=== PATIENT | female | born 1970 | race Caucasian/White ===

== ENCOUNTER 2020-05-16 10:16 | Outpatient (CLI) | payer OTHER, SELFPAY ==
--- NOTE | ~2020-05-16 | MM_ITS ---
EXAMINATION: MM screening [facility] BI w cecily HISTORY: Screening TECHNIQUE: Craniocaudal and mediolateral oblique 3-D tomosynthesis images were obtained and synthetic 2-D images were generated. CAD analysis was submitted and interpreted. COMPARISON: Comparison to multiple prior studies sequentially, with oldest reviewed study dated 10/2013. BREAST PARENCHYMAL COMPOSITION: There are scattered areas of fibroglandular density. FINDINGS: Stable mass upper outer quadrant of the left breast. There is no evidence of suspicious mas s, calcification, or architectural distortion to suggest malignancy in either breast. There has been no suspicious interval change. IMPRESSION: 1. No mammographic evidence of malignancy. 2. Recommend routine screening mammography in one year. BI-RADS Category 2: Benign finding(s). Reviewed, dictated and finalized at location A.
== END 2020-05-16 10:17 | disposition home or self-care (01) ==
LOC: ANHIMG 10:19
PROVIDERS: PCP Physician Assistant; Visit Provider Physician Assistant
DX: Z12.31 Encounter for screening mammogram for malignant neoplasm of breast (principal)
CPT/HCPCS: 77063; 77067

== ENCOUNTER 2022-04-05 00:18 | Day surgery (SDC) | payer OTHER, SELFPAY ==
[2022-03-17 14:36] VITALS: BMI 27.9
[2022-04-05 08:44] VITALS: BP 129/79; PULSE 78; RESP 18; TEMP 36.6; O2SAT 100
[2022-04-05] MEDS: LACTATED RINGERS 1,000 ML 150 ML IV CONT (08:56)
--- NOTE | 2022-04-05 09:20 | PM.HPGS ---
History of Present Illness History of Present Illness Consent: Risks, benefits, and alternatives have been discussed and questions answered. Patient agrees to proceed with procedure. Chief complaint: neoplasm screening Narrative: Kary Quiroz is a 51 year old female here for first screening colonoscopy Review of Systems Constitutional: Constitutional: Denies headache(s) and Denies weakness Eyes: Eyes: Denies blurry vision ENT: Reports Normal hearing present, Denies headache(s) and Denies neck pain Cardiovascular: Cardiovascular: Denies chest pain and Denies dyspnea Respiratory: Respiratory: Denies dyspnea Gastrointestinal: Gastrointestinal: Reports no additional gastrointestinal complaints Genitourinary: Genitourinary: Denies dysuria Musculoskeletal: Musculoskeletal: Denies neck pain Integumentary/Breasts: Skin/Breast: Denies dry skin Neurologic: Reports Normal hearing present, Denies headache(s) and Denies weakness Psychiatric: Psychiatric: Denies anxiety Endocrine: Endocrine: Denies change in body appearance Hematologic/Lymphatic: Hematologic/Lymphatic: Denies easy bleeding Allergic/Immunologic: Allergic/Immunologic: Denies urticaria PMF Past Medical History Medical History (Updated 04/05/22 @ 09:21 by Cirilo Brunson MD) Colon cancer screening Family History Family History (Updated 06/05/14 @ 07:13 by DOCTOR UNKNOWN) Father Family history of Hodgkin's lymphoma Social History Social History Smoking status: Never smoker Alcohol intake: never Living arrangements: with family Spiritual care concerns: No Meds Home Medications and Allergies Home Medications Medication Instructions Recorded Confirmed Type lisinopril 10 mg tablet 10 tablet PO DAILY 03/17/22 03/17/22 History omeprazole 20 mg capsule,delayed 1 cap PO 2XW 03/17/22 03/17/22 History release Allergies Allergy/AdvReac Type Severity Reaction Status Date / Time Penicillins Allergy Unknown Hives Verified 04/05/22 08:44 Vital Signs Vital Signs - 24 hr 04/05/22 08:44 Temperature 97.9 F Pulse Rate 78 Respiratory Rate 18 Blood Pressure 129/79 Pulse Oximetry 100 Oxygen Delivery Room Air Exam Const: General: comfortable and no acute distress HENMT: General nose exam: Normal nares present Eyes: General: appearance normal, both eyes and all related structures Neck: Neck: no JVD Resp: Auscultation: clear to auscultation bilaterally Cardio: Rate: regular rate Rhythm: regular rhythm GI: Inspection: non-distended GI Palp: Yes Soft to palpation Skin: General skin exam: normal color Neuro: General: gait normal Speech: normal speech Extrem: General: normal to inspection Psych: Mental Status: mental status grossly normal Assessment and Plan Assessment and plan (1) Colon cancer screening: Code(s): Z12.11 - Encounter for screening for malignant neoplasm of colon Status: Acute Assessment and Plan: colonoscopy
--- NOTE | 2022-04-05 09:23 | WPDANESEPPF ---
Anes - Initial Pre Proc Eval Procedure: Operation Date: 04/05/22 10:00 Proposed Procedures p Screening Colonoscopy - Cirilo Brunson MD Date/Time: 04/05/22 09:23 Surgeon: Cirilo Brunson MD Pre Op Diagnosis: neoplasm screening Patient Data Age: 51 Gender: F Height: 1.68 m Weight: 78.4 kg Last Vital Signs Temp 97.9 F 04/05/22 08:44 Pulse 78 04/05/22 08:44 Resp 18 04/05/22 08:44 BP 129/79 04/05/22 08:44 Pulse Ox 100 04/05/22 08:44 O2 Del Method Room Air 04/05/22 08:44 Allergies Allergy/AdvReac Type Severity Reaction Status Date / Time Penicillins Allergy Unknown Hives Verified 04/05/22 08:44 Home Medications Medication Instructions Recorded Confirmed Type lisinopril 10 mg tablet 10 tablet PO DAILY 03/17/22 03/17/22 History omeprazole 20 mg capsule,delayed 1 cap PO 2XW 03/17/22 03/17/22 History release Patient hx anesthesia problems: none Family hx anesthesia problems: none Results Review: All pre-operative results and documents have been reviewed as part of the pre-operative evaluation. [facility] Past Medical History Medical History (Updated 04/05/22 @ 09:21 by Cirilo Brunson MD) Colon cancer screening Family History Family History (Updated 06/05/14 @ 07:13 by DOCTOR UNKNOWN) Father Family history of Hodgkin's lymphoma Social History Social History Smoking status: Never smoker Alcohol intake: never Living arrangements: with family Spiritual care concerns: No Anes - Eval Final PreProcedure Day of Procedure 04/05/22 09:23 Patient weight: overweight Heart: regular rate and rhythm Lungs: clear to auscultation Airway: Mallampati scale class II Neurological: alert and oriented Last oral intake: >/= 8 hours ASA classification: II Emergent: no Anesthetic plan: proceed Anesthesia type and monitoring: general GIVS and standard monitoring Results Review: All pre-operative results and documents have been reviewed as part of the pre-operative evaluation. Informed Consent: The patient's anesthetic plan and its attendant risks and benefits were discussed with the patient/family/POA. Questions were solicited and answers provided to the satisfaction of the patient/family/POA.
[2022-04-05 09:40] VITALS: BP 106/74; PULSE 78; RESP 16; O2SAT 97
[2022-04-05 09:50] VITALS: BP 108/76; PULSE 75; RESP 21; O2SAT 100
[2022-04-05 10:00] VITALS: BP 110/75; PULSE 61; RESP 20; O2SAT 100
== END 2022-04-05 10:11 | disposition home or self-care (01) ==
PROVIDERS: PCP Physician Assistant; Visit Provider Internal Medicine Gastroenterology
PROC: 0DJD8ZZ Inspection of Lower Intestinal Tract, Via Natural or Artificial Opening Endoscopic (ICD-10-PCS; CPT 45378; principal; 2022-04-05 10:00)
DX: Z12.11 Encounter for screening for malignant neoplasm of colon (principal); K64.8 Other hemorrhoids
CPT/HCPCS: 45378; J2704; J7120

== ENCOUNTER 2022-05-17 17:25 | Outpatient (CLI) | payer OTHER, SELFPAY ==
--- NOTE | ~2022-05-17 | MM_ITS ---
EXAMINATION: MM screening [facility] BI w cecily HISTORY: Screening mammogram TECHNIQUE: Craniocaudal and mediolateral oblique 3-D tomosynthesis images were obtained and synthetic 2-D images were generated. CAD analysis was submitted and interpreted. COMPARISON: 05/16/2020, 10/24/2018 BREAST PARENCHYMAL COMPOSITION: The breasts are almost entirely fatty. FINDINGS: A stable mass of the left breast is considered benign given the lack of interval change. Th ere is no suspicious mass, calcification, or architectural distortion to suggest malignancy in either breast. There has been no suspicious interval change. IMPRESSION: 1. No mammographic evidence of malignancy. 2. Recommend routine screening mammography in one year. BI-RADS Category 2: Benign finding(s). Reviewed, dictated and finalized at location A.
== END 2022-05-17 17:26 | disposition home or self-care (01) ==
PROVIDERS: PCP Physician Assistant; Visit Provider Physician Assistant
DX: Z12.31 Encounter for screening mammogram for malignant neoplasm of breast (principal)
CPT/HCPCS: 77063; 77067

== ENCOUNTER 2024-03-07 16:27 | Outpatient (CLI) | payer OTHER, SELFPAY ==
--- NOTE | ~2024-03-07 | MM_ITS ---
EXAMINATION: MM screening [facility] BI w cecily HISTORY: Screening TECHNIQUE: Craniocaudal and mediolateral oblique 3-D tomosynthesis images were obtained and synthetic 2-D images were generated. CAD analysis was submitted and interpreted. COMPARISON: Comparison to multiple prior studies sequentially, with oldest reviewed study dated 10/2013. BREAST PARENCHYMAL COMPOSITION: Not Dense: Breast are almost entirely fatty. FINDINGS: The right breast is stable without evidence for malignancy. There is a circumscribed mass i n the upper outer quadrant of the left breast which is enlarged slightly compared with prior studies. IMPRESSION: 1. Slight enlargement of left breast mass, upper outer quadrant anteriorly. 2. Recommend Limited left breast ultrasound. BI-RADS CATEGORY 0 - INCOMPLETE STUDY, NEED ADDITIONAL IMAGING EVALUATION. Reviewed, dictated and finalized at location B.
== END 2024-03-07 16:28 | disposition home or self-care (01) ==
PROVIDERS: PCP Physician Assistant; Visit Provider Advanced Practice Midwife
DX: Z12.31 Encounter for screening mammogram for malignant neoplasm of breast (principal); N63.21 Unspecified lump in the left breast, upper outer quadrant
CPT/HCPCS: 77063; 77067

== ENCOUNTER 2024-03-12 08:37 | Outpatient (CLI) | payer OTHER, SELFPAY ==
--- NOTE | ~2024-03-12 | US_ITS ---
US breast LT limited 03/12/2024 09:17 Indication: Follow-up left breast mass seen on recent mammogram Procedure: High-resolution Limited ultrasound of the left breast Comparison: Mammogram dated 03/07/2024 Findings: There is a 5 mm cyst at 2:00, 4 cm from the nipple, corresponding to the mammographic findi ng. No suspicious masses to suggest malignancy. Impression: 1: Benign 5 mm cyst corresponding to the mammographic abnormality. No sonographic evidence for malign kaylyn. Routine yearly screening mammogram and regular clinical breast examination are recommended. BI-RADS CATEGORY 2 - BENIGN FINDINGS Reviewed, dictated and finalized at location B. Impression: 1: Benign 5 mm cyst corresponding to the mammographic abnormality. No sonograph ic evidence for malignancy. Routine yearly screening mammogram and regular clinical breast examination are recommended. BI-RADS CATEGORY 2 - BENIGN FINDINGS
== END 2024-03-12 08:38 | disposition home or self-care (01) ==
PROVIDERS: PCP Physician Assistant; Visit Provider Advanced Practice Midwife
DX: R92.8 Other abnormal and inconclusive findings on diagnostic imaging of breast (principal)
CPT/HCPCS: 76642

== ENCOUNTER 2025-03-17 10:02 | Outpatient (CLI) | payer OTHER, SELFPAY ==
--- NOTE | ~2025-03-17 | MM_ITS ---
EXAMINATION: MM screening [facility] BI w cecily HISTORY: Screening TECHNIQUE: Craniocaudal and mediolateral oblique 3-D tomosynthesis images were obtained and synthetic 2-D images were generated. CAD analysis was submitted and interpreted. COMPARISON: Comparison to multiple prior studies sequentially, with oldest reviewed study dated 10/31. BREAST PARENCHYMAL COMPOSITION: Not dense: There are scattered areas of fibroglandular density. FINDINGS: Stable left breast mass upper outer quadrant of the left breast, previously characterized a s a cyst by ultrasound. There is no evidence of suspicious mass, calcification, or architectural dist ortion to suggest malignancy in either breast. There has been no suspicious interval change. IMPRESSION: 1. No mammographic evidence of malignancy. 2. Recommend routine screening mammography in one year. BI-RADS Category 2: Benign finding(s). Reviewed, dictated and finalized at location B.
--- OUTSIDE RECORDS SUMMARY | 2025-03-17 11:11 | XMS_ITS | Data Portability ---
Author Organization [facility], Main Office Address [address] [place] [address] Assessment No assessment recorded. Plan of Treatment Reminders Order Date Submit Date Provider Last Modified By Organization Details Last Modified Time Details Appointments None recorded. Lab None recorded. Referral None recorded. Procedures None recorded. Surgeries None recorded. Imaging None recorded. Medication Orders Wegovy 0.25 mg/0.5 mL subcutaneou s pen injector 2022 023 [id number], [address] , [place], [place], [id number], 18:40:06 Patient TargetsNo targets recorded. Patient InstructionsNo instructions recorded. Reason for Referral None Reported. Results Created Date Observation Date Name Description Value Unit Range Abnormal Flag Note LastModifiedBy Organization Detail LastModifiedTime 01/08/20 22 01/08/2022 HEMOG LOBIN A1C hemoglobin A1C 5.8 % 4.8-5. 6 above high normal Predi abete s: 5.7 - 6.4 Diabe juan: >6.4 Glyce hien contr ol for adult s with diabe juan: <7.0 Not Available [facility] ([facility]) [address], [place], [address], 01/08/2022 05:09:28 01/08/2001/08/2022 LIPID PANEL WITH LDL/H DL RATIO cholesterol, total 246 mg/dL 100-19 9 above high normal Not Available [facility] ([facility]) [address] [place], [address], 01/08/2022 05:09:27 01/08/20 22 01/08/2022 LIPID PANEL WITH LDL/H DL RATIO triglyceride s 134 mg/dL 0-149 Not Available [facility] ([facility]) [address] [place], [address], 01/08/2022 05:09:27 01/08/20 22 01/08/2022 LIPID PANEL WITH LDL/H DL RATIO HDL cholesterol 82 mg/dL >39 Not Available [facility] ([facility]) [address] [place], [address], 01/08/2022 05:09:27 01/08/20 22 01/08/2022 LIPID PANEL WITH LDL/H DL RATIO VLDL cholesterol anjum 23 mg/dL 5-40 Not Available [facility] ([facility]) [address] [place], [address], 01/08/2022 05:09:27 01/08/20 22 01/08/2022 LIPID PANEL WITH LDL/H DL RATIO LDL chol calc ([facility]) 141 mg/dL 0-99 above high normal Not Available [facility] ([facility]) [address] [place], [address], 01/08/2022 05:09:27 01/08/20 22 01/08/2022 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 2 LDL/H DL Ratio Men Women 1/2 Avg.R isk 1.0 1.5 Avg.R isk 3.6 3.2 2X Avg.R isk 6.2 5.0 3X Avg.R isk 8.0 6.1 Not Available [facility] ([facility]) [address] [place], [address], 01/08/2022 05:09:27 01/08/20 22 01/08/2022 COMP. METAB OLIC PANEL (14) glucose 87 mg/dL 65-99 Not Available [facility] ([facility]) [address] [place], [address], 01/08/2022 05:09:27 01/08/20 22 01/08/2022 COMP. METAB OLIC PANEL (14) BUN 15 mg/dL 6-24 Not Available [facility] ([facility]) [address] [place], [address], 01/08/2022 05:09:27 01/08/20 22 01/08/2022 COMP. METAB OLIC PANEL (14) creatinine 0.88 mg/dL 0.57-1 .00 Not Available [facility] ([facility]) [address] [place], [address], 01/08/2022 05:09:27 01/08/20 22 01/08/2022 COMP. METAB OLIC PANEL (14) eGFR 80 mL/mi n/1.7 3 >59 Not Available [facility] ([facility]) [address] [place], [address], 01/08/2022 05:09:27 01/08/20 22 01/08/2022 COMP. METAB OLIC PANEL (14) BUN/creatini ne ratio 17 9-23 Not Available [facility] ([facility]) [address] [place], [address], 01/08/2022 05:09:27 01/08/20 22 01/08/2022 COMP. METAB OLIC PANEL (14) sodium 138 mmol/ L 134-14 4 Not Available [facility] ([facility]) [address] [place], [address], 01/08/2022 05:09:27 01/08/20 22 01/08/2022 COMP. METAB OLIC PANEL (14) potassium 4.3 mmol/ L 3.5-5. 2 Not Available [facility] ([facility]) [address] [facility] [place], [address], 01/08/2022 05:09:27 01/08/20 22 01/08/2022 COMP. METAB OLIC PANEL (14) chloride 101 mmol/ L 96-106 Not Available [facility] ([facility]) [address] [facility] [place], [address], 01/08/2022 05:09:27 01/08/20 22 01/08/2022 COMP. METAB OLIC PANEL (14) carbon dioxide, total 22 mmol/ L 20-29 Not Available [facility] ([facility]) [address] [facility], [place], [address], 01/08/2022 05:09:27 01/08/20 22 01/08/2022 COMP. METAB OLIC PANEL (14) calcium 10.0 mg/dL 8.7-10 .2 Not Available [facility] ([facility]) [address] [facility] [place], [address], 01/08/2022 05:09:27 01/08/20 22 01/08/2022 COMP. METAB OLIC PANEL (14) protein, total 7.1 g/dL 6.0-8. 5 Not Available [facility] ([facility]) [address] [place], [address], 01/08/2022 05:09:27 01/08/20 22 01/08/2022 COMP. METAB OLIC PANEL (14) albumin 4.5 g/dL 3.8-4. 8 Not Available [facility] ([facility]) [address] [facility] [place], [address], 01/08/2022 05:09:27 01/08/20 22 01/08/2022 COMP. METAB OLIC PANEL (14) globulin, total 2.6 g/dL 1.5-4. 5 Not Available [facility] ([facility]) [address] [place], [address], 01/08/2022 05:09:27 01/08/20 22 01/08/2022 COMP. METAB OLIC PANEL (14) A/G ratio 1.7 1.2-2. 2 Not Available [facility] ([facility]) [address] [place], [address], 01/08/2022 05:09:27 01/08/20 22 01/08/2022 COMP. METAB OLIC PANEL (14) bilirubin, total 0.3 mg/dL 0.0-1. 2 Not Available [facility] ([facility]) [address] [facility] [place], [address], 01/08/2022 05:09:27 01/08/20 22 01/08/2022 COMP. METAB OLIC PANEL (14) alkaline phosphatase 86 IU/L 44-121 Not Available [facility] ([facility]) [address] [facility] [place], [address], 01/08/2022 05:09:27 01/08/20 22 01/08/2022 COMP. METAB OLIC PANEL (14) AST (SGOT) 22 IU/L 0-40 Not Available [facility] ([facility]) [address] [facility] [place], [address], 01/08/2022 05:09:27 01/08/20 22 01/08/2022 COMP. METAB OLIC PANEL (14) ALT (SGPT) 17 IU/L 0-32 Not Available [facility] ([facility]) [address] [facility] [place], [address], 01/08/2022 05:09:27 04/05/20 22 04/05/2022 colon oscop y scree keli (PROC ) No observ ation record ed. [id number] Cirilo tyson MD [address], [place], [address], 12/07/2022 21:33:52 05/18/2005/17/2022 MAMMO , randal dickey, digit al, bilat roslynl No observ ation record ed. [id number] [facility] (Mammography) [address], [place], [address], 12/07/2022 21:33:52 Result Notes None recorded. Problems Name Problem SNOMED Code Status Onset Date Resolution Date Notes Provider Name and Address Organization Details Recorded Time Benign essential hypertension 1574325 Active 2021 Not Available [facility] 3 21:31:34 Blood chemistry outside reference range 614019288 Active 2021 Not Available [facility] 3 21:31:34 Blood glucose outside reference range 606463746 Active 2021 Not Available [facility] 3 21:31:34 Menopausal flushing 735210802 Active 2021 Not Available [facility] 3 21:31:34 Gastroesophag eal reflux disease without esophagitis 169579826 Active 2021 HERNAN Rosales, [employer] 3 15:09:03 Hypertensive disorder 16669189 Active 2019 Not Available [facility] 3 21:31:35 Hyperlipidemi a 47859841 Active 2021 HERNAN Rosales, [facility] 3 15:09:01 Skin lesion 73966549 Active 2022 DARLINE Staples [address], [address], [place], [address] , [facility] 3 18:24:40 Mixed hyperlipidemi a 033323403 Active 2022 DARLINE Staples [address], [address], [place], [address] , [facility] 3 18:35:09 Impaired glucose tolerance 1225703 Active 2022 DARLINE Staples [address] [facility] [facility] [address], [place], [address] , [facility] [employer] 18:35:27 Problem Notes None recorded. Procedures Surgical History Date Name Laterality Status Provider Name and Address Organization Details Recorded Time 07/09/20 dilation of esophagus completed Not Available [facility] 12/07/2022 21:29:52 06/09/20 completed Not Available [facility] 12/07/2022 21:29:52 Cholecystectomy completed Not Available [facility] 12/07/2022 21:29:52 Imaging Results None recorded. Procedure Notes None recorded. Medical Equipment None Reported. Allergies Allergen ID Allergen Name Allergen Category Reaction Reaction Severity Criticality Documentation Date Start Date Code Code System Note Provider Name and Address Organization Details Recorded Time 62047 Product containin g penicilli n (product) medicatio n rash Not available Not available 12/07/2022 58855 8001 SNOMED Not Available [facility] 21:33:42 Medications Name Sig Start Date Stop Date Status Note LastModified by Organization Details LastModified Time polyethylen e glycol 3350 17 gram oral powder packet DISSOLVE 1 PACKET IN LIQUID AND DRINK BY MOUTH DAILY FOR 5 DAYS 07/18 completed Not Available Not Available Not Available azithromyci n 250 mg tablet TK 2 TS PO ON DAY 1, THEN TK 1 T PO D FOR 4 DAYS 07/18 completed Not Available Not Available Not Available fluconazole 150 mg tablet Take 1 tablet every day by oral route for 2 days. active Not Available Not Available No t Available sulfamethox azole 800 mg-trimetho prim 160 mg tablet TK 1 T PO Q 12 H 07/12 completed Not Available Not Available Not Available omeprazole 40 mg capsule,del ayed release Take 1 capsule every day by oral route for 30 days. 04/28 completed Not Available Not Available Not Available lisinopril 10 mg tablet TAKE 1 TABLET BY MOUTH EVERY DAY active Not Available Not Available No t Available omeprazole 20 mg capsule,del ayed release Take by oral route for 30 days. active Not Available Not Available No t Available metoclopram lu 10 mg tablet TAKE 1 TABLET BY MOUTH TWICE DAILY FOR 7 DAYS NEEDED FOR CONSTIPAT ION 07/18 completed Not Available Not Available Not Available Afluria Qd 2019-20 (36 mos up)(PF)60 mcg (15 mcg x4)/0.5 mL IM syringe ADM 0.5ML IM UTD 09/16 completed Not Available Not Available Not Available Wegovy 0.25 mg/0.5 mL subcutaneou s pen injector Inject 0.25 mg every week by subcutane ous route as directed. 2022 active Not Available Not Available Not Avai lable Vitals Date Recorded Body mass index (BMI) Body height Oxygen saturation Oxygen saturation in Arterial blood by Pulse oximetry Heart rate Body temperature Body weight Systolic blood pressure Diastolic blood pressure Provider Name and Address Organization Details Last Updated DateTime 1 26.3 kg/m2 167.64 cm 98 % 98 % 81 /min 97 [degF] 32079.5 6 g 112 mm[Hg] 80 mm[Hg] Not Available [facility] 3 21:29:57 Date Recorded Body height Oxygen saturation Oxygen saturation in Arterial blood by Pulse oximetry Heart rate Respiratory rate Body temperature Systolic blood pressure Diastolic blood pressure Provider Name and Address Organization Details Last Updated DateTime 2 167.64 cm 96 % 96 % 93 /min 16 /min 98.1 [degF] 118 mm[Hg] 78 mm[Hg] Not Available [facility] 3 21:29:57 Date Recorded Body height Body temperature Body mass index (BMI) Body weight Respiratory rate Oxygen saturation Oxygen saturation in Arterial blood by Pulse oximetry Heart rate Systolic blood pressure Diastolic blood pressure Provider Name and Address Organization Details Last Updated DateTime 3 167.64 cm 97.5 [degF] 30.5 kg/m2 54788.9 6 g 16 /min 98 % 98 % 72 /min 128 mm[Hg] 80 mm[Hg] HERNAN Rosales [place] [employer] 3 17:51:10 Social History Question Answer Notes LastModified by Organizat ion Details LastModified Time Tobacco Smoking Status Never Smoker Not Available [facility] 12/07/2022 21:29:23 Do You Have An Advance Directive? No [id number] Information not available 12/07/2022 If You Are , What Was Your Level Of Alcohol Consumption Prior To ? None [id number] Information not available 12/07/2022 Do You Wear A Helmet When Biking? No [id number] Information not available 12/07/2022 What Is Your Level Of Caffeine Consumption? Heavy [id number] Information not available 12/07/2022 In The 14 Days Before Symptom Onset, Have You Had Close Contact With A Laboratory-confirm ed COVID-19 While That Case Was Ill? No [id number] Information not available 12/07/2022 In The 14 Days Before Symptom Onset, Have You Had Close Contact With A Person Who Is Under Investigation For COVID-19 While That Person Was Ill? No [id number] Information not available 12/07/2022 What Type Of Diet Are You Following? REGULAR [id number] Information not available 12/07/2022 What Is The Highest Grade Or Level Of School You Have Completed Or The Highest Degree You Have Received? EG00398-8 [id number] Information not available 12/07/2022 Have There Been Any Changes To Your Family Or Social Situation? No Information no t available 07/24/2023 Are There Any Guns Present In Your Home? No [id number] Information not available 12/07/2022 Do You Use Insect Repellent Routinely? Yes [id number] Information not available 12/07/2022 Do You Have A Medical Power Of Packaging Design Engineer? No [id number] Information not available 12/07/2022 What Is Your Relationship Status? [id number] Information not available 12/07/2022 Do You Use Your Seat Belt Or Car Seat Routinely? Yes [id number] Information not available 12/07/2022 Do You Have Smoke And Carbon Monoxide Detectors In Your Home? Yes [id number] Information not available 12/07/2022 Do You Use Sunscreen Routinely? Yes [id number] Information not available 12/07/2022 Has Tobacco Cessation Counseling Been Provided? No [id number] 026 Information not available 12/07/2022 Have You Recently Traveled Abroad? No [id number] Information not available 12/07/2022 Do You Have Any Dietary Restrictions? No [id number] 026 Information not available 12/07/2022 Sex: Unknown Functional Status Question Answer Note LastModified by Organizat ion Details LastModified Time Do you use any illicit or recreational drugs? No [id number] Information not available 12/07/2022 Do you or have you ever used any other forms of tobacco or nicotine? No [id number] Information not available 12/07/2022 What is your level of alcohol consumption? None [id number] Information not available 12/07/2022 Are you currently employed? 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 Occasional [id number] Information not available 12/07/2022 Mental Status Question Answer Note LastModified by Organizat ion Details LastModified Time Do you feel stressed (tense, restless, nervous, or anxious, or unable to sleep at night)? [id number] Information not available 12/07/2022 Family History Relationship Description Onset Age of this Age Resolved Age Notes LastModified by Organization Details LastModified Time Father Non-Hodgkin' s lymphoma (clinical) [id number] Not available 12/07/2022 21:29:53 Medical History No medical history recorded. Gynecological History Statement/Question Response Menses Monthly Y Abnormal Pap N Date of Last Pap 10/09/2016 Date of Last Mammogram 05/16/2020 Date of LMP 08/20/2019 Sexually Active? Y Obstetrics History GPAL:G 3 P 0 0 0 2 Type Value Living 2 Total 3 Immunizations Vaccine Type Date Status Note Provider Nam e and Address Organization Details Recorded Time Influenza, split virus, quadrivalent, preservative 9 completed Not Available [facility] 12/07/2022 21:33:32 Past Encounters Encounter ID Performer Location Encounter Start Date Encounter Closed Date Diagnosis/Indication Diagnosis SNOMED-CT Code Diagnosis ICD10 Code Diagnosis Note [id number] DARLINE Staples [facility] Internal [facility] [place] [address] [place] [address] 07/12/2021 00:00:00 08/05/2021 23:29:34 [id number] DARLINE Staples [facility] Internal [facility] [place] [address] [place] [address] 07/18/2022 00:00:00 08/08/2022 17:13:14 [id number] DARLINE Staples [facility] Internal [facility] [place] [address] [place] [address] 07/24/2023 17:44:52 07/24/2023 18:35:44 Adult health examination 346399547 Z00.01 well exam completed Gastroesop hageal reflux disease without esophagitis 521220687 K21.9 stable on PPI therapy. omeprazole 20mg daily. Mixed hyperlipidemia 267 416158 E78.2 LDL up to 160 range, triglyceri manuela mild elevation. Benign ess ential hypertension 7511888 I10 stable on lisinopril 10mg daily. Long-term drug therapy 352226980 Z79.899 all labs reviewed Impaired g lucose tolerance 8765951 R73.03 5.8% on labs. pt will be managing with diet and exercise and weight loss Body mass index 30+ - obesity 167835650 Z68.30 start wegovy 0.25mg weekly injection x 4 weeks and will titrate up. Health Concerns Section Related Observation LastModified by Organization Detai ls LastModified Time None Recorded Concern Status LastModified by Organization Details LastModified Time None Recorded Advance Directives Directive N: Payers Encounter Date Sequence Insurance Name Policy Number Policy Mach[employer] Covered Member ID Machado Member ID Guarantor Name 07/24/2023 1 [facility] [id number] Kary Quiroz [id number] Kary Quiroz Notes Date Note Type Note Provider Name and Address Organization Details Recorded Time 1 text/html HypertensionReported bypatient.Notes:stable on low dose medication lisinopril.Reflux/GERDRepo rted bypatient.Symptomsasymptom atic; no difficulty swallowing; no pain swallowing; no postprandial pain Severity:improving Context:non-smoker; no drug/alcohol abuse; no drug alcohol withdrawal; not related to food/drink Associated Symptoms:no frequent coughing; no feeling of fullness/mass in throat; no hoarseness; no food getting stuck; no belching/burping; no nausea; no vomiting; not vomiting blood; no regurgitation; no shortness of breath; no chest pain; no heartburn; no difficulty swallowing; no pain when swallowing; no bad taste; no decreased appetite; no weight loss; no black/tarry stools; no fatigue; no throat pain; no dental erosion; no bloating; no early satiety; no halitosis Not Available [facility] 08/05/2021 23:29:34 2 text/html HypertensionReported bypatient.Duration:has noted for years Onset/Timing:better Alleviating Factors:medication Self Care:under emotional stress Associated Symptoms:no shortness of breath; no fatigue; no palpitations; no decline in exercise capacity; no snoringReflux/GERDReported bypatient.Symptomsasymptom atic; no difficulty swallowing; no pain swallowing; no postprandial pain Severity:same Duration:present 5 or more years Onset/Timing:gone now Context:non-smoker; no drug/alcohol abuse; no drug alcohol withdrawal; not related to food/drink Alleviating Factors:medication Aggravating Factors:worsened by food Associated Symptoms:no frequent coughing; no hoarseness; no food getting stuck; no belching/burping; no vomiting; not vomiting blood; no regurgitation; no shortness of breath; no chest pain; no heartburn; no difficulty swallowing; no pain when swallowing; no bad taste; no decreased appetite; no weight loss; no black/tarry stools; no fatigue; no throat pain; no dental erosion; no bloating; no early satiety; no halitosis Not Available [facility] 08/08/2022 17:13:14 3 text/html HyperlipidemiaReported bypatient.Duration:chronic Control:usually well controlled Compliance:compliant; compliant with diet; exercises Complications:no coronary artery disease; no peripheral artery disease; no cardiovascular disease Risk Factors:hypertensionHypert ensionReported bypatient.Duration:has noted for years Onset/Timing:better Alleviating Factors:medication Associated Symptoms:no shortness of breath; no fatigue; no palpitations; no decline in exercise capacity; no snoringReflux/GERDReported bypatient.Severity:same Duration:present 5 or more years Onset/Timing:gone now Context:non-smoker; no drug/alcohol abuse; no drug alcohol withdrawal; not related to food/drink Alleviating Factors:medication; taking it every other day. Aggravating Factors:unknown Associated Symptoms:no frequent coughing; no feeling of fullness/mass in throat; no hoarseness; no food getting stuck; no belching/burping; no vomiting; not vomiting blood; no regurgitation; no shortness of breath; no chest pain; no heartburn; no difficulty swallowing; no pain when swallowing; no bad taste; no decreased appetite; no weight loss; no black/tarry stools; no fatigue; no throat pain Wellness DARLINE Staples [address] [facility], [facility] [address], [place], [address], [facility] 08/06/2023 22:05:02 OBGyn Episode No OBEpisode recorded.
--- OUTSIDE RECORDS SUMMARY | 2025-03-17 11:11 | XMS_ITS | Data Portability ---
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 Colonoscopy is up-to-date Eye and dental exams up-to-date Pap smear well-woman exam up-to-date Not available 08/06/2024 00:06:14 02/05/2025 02/05/2025 Mammogram will be due in February 2024 Colonoscopy is up-to-date, April 05, 2022 Eye and dental exams up-to-date Pap smear well-woman exam up-to-date Not available 02/05/2025 17:22:28 Plan of Treatment Reminders Order Date Submit Date Provider Last Modified By Organization Details Last Modified Time Details Appointments ANY 15 2024 04:15P DARLINE Yan Not available Not available Not available Lab TSH + free T4, serum 2024 025 [email or web address] [facility], [address] [facility] [address], [place], [address], 02/05/2025 17:43:09 T3, free, serum or plasma 2024 025 [email or web address] [facility], [address] [facility], [place], [address], 02/05/2025 17:43:08 lipid panel, serum 2024 025 [email or web address] [facility], [address] [place] [address], [place], [address], 02/05/2025 17:43:09 CBC w/ auto diff 2024 025 [email or web address] [facility], [address] [place] [address], [place], [address], 02/05/2025 17:43:09 CMP, serum or plasma 2024 025 [email or web address] [facility], [address] [place] [address], [place], [address], 02/05/2025 17:43:09 vitamin B12 + folate, serum or blood 2024 025 [email or web address] [facility], [address] [place] [address], [place], [address], 02/05/2025 17:43:09 HbA1c (hemoglob in A1c), blood 2024 025 [email or web address] [facility], [address] [place] [address], [place], [address], 02/05/2025 17:43:09 TSH + free T4, serum 2023 024 JUDIE [facility], [address] [place] [address], [place], [address], 07/27/2024 10:12:12 T3, free, serum or plasma 2023 024 JUDIE [facility], [address] [place] [address], [facility], [place], [address], 07/27/2024 10:12:18 lipid panel, serum 2023 024 JUDIE [facility], [address] [place] [address], [place], [place], [address], 07/27/2024 10:12:11 CBC w/ auto diff 2023 024 JUDIE [facility], [address] [facility], [facility], [place], [address], 07/27/2024 10:12:16 CMP, serum or plasma 2023 024 JUDIE [facility], [address] [facility], [facility], [place], [address], 07/27/2024 10:12:13 vitamin B12 + folate, serum or blood 2023 024 JUDIE [facility], [address] [facility], [facility], [place], [address], 07/27/2024 10:12:15 HbA1c (hemoglob in A1c), blood 2023 024 [place] [facility], [address] [facility], [facility], [place], [address], 07/27/2024 10:12:15 Referral None recorded. Procedures None recorded. Surgeries None recorded. Imaging None recorded. Medication Orders Zepbound 2.5 mg/0.5 mL subcutane ous pen injector [email or web address] [id number], [address], [place], [place], [id number], 03/20/2024 14:00:05 Patient TargetsNo targets recorded. Patient InstructionsNo instructions recorded. Reason for Referral None Reported. Results Created Date Observation Date Name Description Value Unit Range Abnormal Flag Note LastModifiedBy Organization Detail LastModifiedTime 07/26/2007/27/2024 LIPID PANEL W/ CHOL/ HDL RATIO cholesterol, total 215 mg/dL 100-19 9 above high normal Not Available [facility] ([facility]) [address] [facility], [place], [address], 07/27/2024 10:12:11 07/26/2007/27/2024 LIPID PANEL W/ CHOL/ HDL RATIO triglyceride s 113 mg/dL 0-149 Not Available [facility] ([facility]) [address] [place], [address], 07/27/2024 10:12:11 07/26/20 24 07/27/2024 LIPID PANEL W/ CHOL/ HDL RATIO HDL cholesterol 59 mg/dL >39 Not Available [facility] ([facility]) [address] [place], [address], 07/27/2024 10:12:11 07/26/20 24 07/27/2024 LIPID PANEL W/ CHOL/ HDL RATIO VLDL cholesterol anjum 20 mg/dL 5-40 Not Available [facility] ([facility]) [address] [place], [address], 07/27/2024 10:12:11 07/26/2007/27/2024 LIPID PANEL W/ CHOL/ HDL RATIO LDL chol calc ([facility]) 136 mg/dL 0-99 above high normal Not Available [facility] ([facility]) [address] [place], [address], 07/27/2024 10:12:11 07/26/20 24 07/27/2024 LIPID PANEL W/ CHOL/ HDL RATIO T. chol/HDL ratio 3.6 ratio 0.0-4. 4 T. Chol/ HDL Ratio Men Women 1/2 Avg.R isk 3.4 3.3 Avg.R isk 5.0 4.4 2X Avg.R isk 9.6 7.1 3X Avg.R isk 23.4 11.0 Not Available [facility] ([facility]) [address] [place], [address], 07/27/2024 10:12:11 07/26/20 24 07/27/2024 TSH+F REE T4 TSH 0.903 uIU/m L 0.450- 4.500 Not Available [facility] ([facility]) [address] [place], [address], 07/27/2024 10:12:12 07/26/20 24 07/27/2024 TSH+F REE T4 T4,free(dire ct) 1.26 NG/dL 0.82-1 .77 Not Available [facility] ([facility]) [address] [facility], [place], [address], 07/27/2024 10:12:12 07/26/20 24 07/27/2024 COMP. METAB OLIC PANEL (14) glucose 88 mg/dL 70-99 Not Available [facility] ([facility]) [address] [facility], [place], [address], 07/27/2024 10:12:13 07/26/2007/27/2024 COMP. METAB OLIC PANEL (14) BUN 13 mg/dL 6-24 Not Available [facility] ([facility]) [address] [place], [address], 07/27/2024 10:12:13 07/26/2007/27/2024 COMP. METAB OLIC PANEL (14) creatinine 0.89 mg/dL 0.57-1 .00 Not Available [facility] ([facility]) [address] [facility], [place], [address], 07/27/2024 10:12:13 07/26/20 24 07/27/2024 COMP. METAB OLIC PANEL (14) eGFR 78 mL/mi n/1.7 3 >59 Not Available [facility] ([facility]) [address] [place], [address], 07/27/2024 10:12:13 07/26/2007/27/2024 COMP. METAB OLIC PANEL (14) BUN/creatini ne ratio 15 9-23 Not Available [facility] ([facility]) [address] [place], [address], 07/27/2024 10:12:13 07/26/20 24 07/27/2024 COMP. METAB OLIC PANEL (14) sodium 140 mmol/ L 134-14 4 Not Available [facility] ([facility]) [address] [facility], [place], [address], 07/27/2024 10:12:13 07/26/20 24 07/27/2024 COMP. METAB OLIC PANEL (14) potassium 5.3 mmol/ L 3.5-5. 2 above high normal Not Available [facility] ([facility]) [address] [facility], [place], [address], 07/27/2024 10:12:13 07/26/20 24 07/27/2024 COMP. METAB OLIC PANEL (14) chloride 106 mmol/ L 96-106 Not Available [facility] ([facility]) [address] [facility], [place], [address], 07/27/2024 10:12:13 07/26/20 24 07/27/2024 COMP. METAB OLIC PANEL (14) carbon dioxide, total 22 mmol/ L 20-29 Not Available [facility] ([facility]) [address] [facility], [place], [address], 07/27/2024 10:12:13 07/26/20 24 07/27/2024 COMP. METAB OLIC PANEL (14) calcium 10.0 mg/dL 8.7-10 .2 Not Available [facility] ([facility]) [address] [facility], [place], [address], 07/27/2024 10:12:13 07/26/20 24 07/27/2024 COMP. METAB OLIC PANEL (14) protein, total 7.2 g/dL 6.0-8. 5 Not Available [facility] ([facility]) [address] [facility] [place], [address], 07/27/2024 10:12:13 07/26/20 24 07/27/2024 COMP. METAB OLIC PANEL (14) albumin 4.5 g/dL 3.8-4. 9 Not Available [facility] ([facility]) [address] [facility] [place], [address], 07/27/2024 10:12:13 07/26/20 24 07/27/2024 COMP. METAB OLIC PANEL (14) globulin, total 2.7 g/dL 1.5-4. 5 Not Available [facility] ([facility]) [address] [facility] [place], [address], 07/27/2024 10:12:13 07/26/20 24 07/27/2024 COMP. METAB OLIC PANEL (14) bilirubin, total 0.5 mg/dL 0.0-1. 2 Not Available [facility] ([facility]) [address] [facility] [place], [address], 07/27/2024 10:12:13 07/26/20 24 07/27/2024 COMP. METAB OLIC PANEL (14) alkaline phosphatase 104 IU/L 44-121 Not Available [facility] ([facility]) [address] [facility] [place], [address], 07/27/2024 10:12:13 07/26/20 24 07/27/2024 COMP. METAB OLIC PANEL (14) AST (SGOT) 22 IU/L 0-40 Not Available [facility] ([facility]) [address] [facility] [place], [address], 07/27/2024 10:12:13 07/26/20 24 07/27/2024 COMP. METAB OLIC PANEL (14) ALT (SGPT) 24 IU/L 0-32 Not Available [facility] ([facility]) [address] [facility] [place], [address], 07/27/2024 10:12:13 07/26/20 24 07/27/2024 VITAM IN B12 AND FOLAT E vitamin B12 567 pg/mL 232-12 45 Not Available [facility] ([facility]) [address] [facility] [place], [address], 07/27/2024 10:12:14 07/26/2007/27/2024 VITAM IN B12 AND FOLAT E folate (folic acid), serum 14.7 NG/mL >3.0 A serum folat e cong ntrat ion of less than 3.1 ng/mL is consi dered to repre sent clini anjum defic iency . Not Available [facility] ([facility]) [address] [facility], [place], [address], 07/27/2024 10:12:14 07/26/2007/27/2024 HEMOG LOBIN A1C hemoglobin A1C 5.5 % 4.8-5. 6 Predi abete s: 5.7 - 6.4 Diabe juan: >6.4 Glyce hien contr ol for adult s with diabe juan: <7.0 Not Available [facility] ([facility]) [address] [facility], [place], [address], 07/27/2024 10:12:15 07/26/2007/27/2024 CBC WITH DIFFE RENTI AL/PL ATELE T WBC 5.4 x10e3 /uL 3.4-10 .8 Not Available [facility] ([facility]) [address] [facility], [place], [address], 07/27/2024 10:12:16 07/26/2007/27/2024 CBC WITH DIFFE RENTI AL/PL ATELE T RBC 4.95 x10e6 /uL 3.77-5 .28 Not Available [facility] ([facility]) [address] [facility], [place], [address], 07/27/2024 10:12:16 07/26/2007/27/2024 CBC WITH DIFFE RENTI AL/PL ATELE T hemoglobin 14.6 g/dL 11.1-1 5.9 Not Available [facility] ([facility]) [address] [place], [address], 07/27/2024 10:12:16 07/26/2007/27/2024 CBC WITH DIFFE RENTI AL/PL ATELE T hematocrit 45.5 % 34.0-4 6.6 Not Available [facility] ([facility]) [address] [facility], [place], [address], 07/27/2024 10:12:16 07/26/2007/27/2024 CBC WITH DIFFE RENTI AL/PL ATELE T MCV 92 fL 79-97 Not Available [facility] ([facility]) [address] [facility], [place], [address], 07/27/2024 10:12:16 07/26/2007/27/2024 CBC WITH DIFFE RENTI AL/PL ATELE T MCH 29.5 pg 26.6-3 3.0 Not Available [facility] ([facility]) [address] [facility], [place], [address], 07/27/2024 10:12:16 07/26/2007/27/2024 CBC WITH DIFFE RENTI AL/PL ATELE T MCHC 32.1 g/dL 31.5-3 5.7 Not Available [facility] ([facility]) [address] [facility], [place], [address], 07/27/2024 10:12:16 07/26/2007/27/2024 CBC WITH DIFFE RENTI AL/PL ATELE T RDW 12.8 % 11.7-1 5.4 Not Available [facility] ([facility]) [address] [place], [address], 07/27/2024 10:12:16 07/26/2007/27/2024 CBC WITH DIFFE RENTI AL/PL ATELE T platelets 295 x10e3 /uL 150-45 0 Not Available [facility] ([facility]) [address] [place], [address], 07/27/2024 10:12:16 07/26/2007/27/2024 CBC WITH DIFFE RENTI AL/PL ATELE T neutrophils 50 % notest ab. Not Available [facility] ([facility]) [address] [facility], [place], [address], 07/27/2024 10:12:16 07/26/2007/27/2024 CBC WITH DIFFE RENTI AL/PL ATELE T lymphs 37 % notest ab. Not Available [facility] ([facility]) [address] [facility], [place], [address], 07/27/2024 10:12:16 07/26/2007/27/2024 CBC WITH DIFFE RENTI AL/PL ATELE T monocytes 7 % notest ab. Not Available [facility] ([facility]) [address] [facility], [place], [address], 07/27/2024 10:12:16 07/26/2007/27/2024 CBC WITH DIFFE RENTI AL/PL ATELE T eos 5 % notest ab. Not Available [facility] ([facility]) [address] [facility], [place], [address], 07/27/2024 10:12:16 07/26/2007/27/2024 CBC WITH DIFFE RENTI AL/PL ATELE T basos 1 % notest ab. Not Available [facility] ([facility]) [address] [facility], [place], [address], 07/27/2024 10:12:16 07/26/2007/27/2024 CBC WITH DIFFE RENTI AL/PL ATELE T neutrophils (absolute) 2.7 x10e3 /uL 1.4-7. 0 Not Available [facility] ([facility]) [address] [facility], [place], [address], 07/27/2024 10:12:16 07/26/20 24 07/27/2024 CBC WITH DIFFE RENTI AL/PL ATELE T lymphs (absolute) 2.0 x10e3 /uL 0.7-3. 1 Not Available [facility] ([facility]) [address] [facility], [place], [address], 07/27/2024 10:12:16 07/26/20 24 07/27/2024 CBC WITH DIFFE RENTI AL/PL ATELE T monocytes(ab solute) 0.4 x10e3 /uL 0.1-0. 9 Not Available [facility] ([facility]) [address] [facility], [place], [address], 07/27/2024 10:12:16 07/26/2007/27/2024 CBC WITH DIFFE RENTI AL/PL ATELE T eos (absolute) 0.3 x10e3 /uL 0.0-0. 4 Not Available [facility] ([facility]) [address] [facility], [place], [address], 07/27/2024 10:12:16 07/26/2007/27/2024 CBC WITH DIFFE RENTI AL/PL ATELE T baso (absolute) 0.0 x10e3 /uL 0.0-0. 2 Not Available [facility] ([facility]) [address] [facility], [place], [address], 07/27/2024 10:12:16 07/26/2007/27/2024 CBC WITH DIFFE RENTI AL/PL ATELE T immature granulocytes 0 % notest ab. Not Available [facility] ([facility]) [address] [facility], [place], [address], 07/27/2024 10:12:16 07/26/2007/27/2024 CBC WITH DIFFE RENTI AL/PL ATELE T immature grans (abs) 0.0 x10e3 /uL 0.0-0. 1 Not Available [facility] ([facility]) [address] [place], [address], 07/27/2024 10:12:16 07/26/20 24 07/27/2024 TRIIO DOTHY CHULA E (T3), FREE triiodothyro nine (T3), free 3.0 pg/mL 2.0-4. 4 Not Available [facility] ([facility]) [address] [facility], [place], [address], 07/27/2024 10:12:17 03/08/20 24 03/07/2024 MAMMO , scree keli, digit al, bilat eral No observ ation record ed. [address] [facility], [place], [address], 03/09/2024 10:17:00 03/12/20 24 03/12/2024 , shivam mock No observ ation record ed. [address], [place], [address], 03/12/2024 22:42:28 10/07/20 24 05/17/2022 MAMMO , scree keli, digit al, bilat eral No observ ation record ed. BARCODE Not Available 2023 13:32:23 10/07/20 24 04/05/2022 colon oscop y proce dure (PROC ) No observ ation record ed. BARCODE Not Available 2023 13:32:23 Result Notes None recorded. Problems Name Problem SNOMED Code Status Onset Date Resolution Date Notes Provider Name and Address Organization Details Recorded Time Long-term drug therapy Active 2023 DARLINE Staples Attn: Lucas g,[address] [facility], [place], [address], [place] - [facility] 4 21:43:56 Body mass index 25-29 - overweight 825528517 Active 2023 DARLINE Staples Attn: Lucas g,[address] [facility], [place], [address], [place] [facility] 4 21:44:25 Gastroesophage al reflux disease without esophagitis 026293729 Active 2023 DARLINE Staples Attn: Accountin g,[address] [facility], [place], [address], [place] [facility] 4 21:45:14 Benign essential hypertension 2844528 Active 2023 DARLINE Staples Attn: Accountin g,[address] [facility], [place], [address], [place] [facility] 4 17:05:16 Hyperlipidemia 26706873 Active 2023 DARLINE Staples Attn: Accountin g,[address] [facility], [place], [address], [place] [facility] 4 17:05:17 Overweight in adulthood with body mass index of 25 or more but less than 30 080391085 Active 2024 DARLINE Staples Attn: Accountin g,[address] [facility], [place], [address], [place] [facility] 5 17:21:56 Problem Notes None recorded. Medical Equipment None Reported. Allergies Allergen ID Allergen Name Allergen Category Reaction Reaction Severity Criticality Documentation Date Start Date Code Code System Note Provider Name and Address Organization Details Recorded Time 788531 Product containin g penicilli n (product) medicatio n Not available Not available Not available 03/11/2024 35671 [address] MA [facility], [place] - [facility] 4 15:15:57 Medications Name Sig Start Date Stop Date Status Note LastModified by Organization Details LastModified Time progester one 220mg ar caps (#00) TAKE one Capsule BY MOUTH ONCE DAILY 1-2 hours BEFORE bed 02/05 completed Not Available Not Available Not Available t3/t4 liothy/le vothy 10/40 mcg ar caps (#1) Take one Capsule by mouth every morning On an empty stomach at least 30 minutes BEFORE food or medicati ons 02/05 completed Not Available Not Available Not Available azithromy jie 250 mg tablet 03/11 completed Patient stated she is done with this medicati on. Not Available Not Available Not Available fluconazo le 150 mg tablet TAKE 1 TABLET BY MOUTH NOW. REPEAT IN 72 HOURS 02/05 completed Not Available Not Available Not Available benzonata te 200 mg capsule TAKE 1 CAPSULE BY MOUTH THREE TIMES DAILY NEEDED 03/11 completed Patient stated she is done with this medicati on. Not Available Not Available Not Available lisinopri l 10 mg tablet Take 1 tablet by oral route for 30 days. active Not Available Not Available No t Available testoster one 02/05 completed cream, isn't sure dosing Not Available Not Available Not Available progester one 220mg 08/05 completed Patient takes 220mg every day Not Available Not Available Not Available omeprazol e 20 mg delayed release,d isintegra ting tablet Take every 24 hours by oral route. 08/05 completed Not Available Not Available Not Available levonorge strel 0.1 mg-ethiny l estradiol 20 mcg chewable tablet Chew 1 tablet every day by oral route. 08/05 completed Not Available Not Available Not Available semagluti de (weight loss) 0.25 mg/0.5 mL subcutane ous pen injector Inject by subcutan eous route. 02/05 completed Not Available Not Available Not Available Zepbound 2.5 mg/0.5 mL subcutane ous pen injector ADMINIST ER 2.5 MG UNDER THE SKIN EVERY WEEK 03/20 completed Per CMM, Message from [employer]: Drug is not covered by plan Not Available Not Available Not Available Vitals Date Recorded Systolic blood pressure Diastolic blood pressure Provider Name and Address Organization Details Last Updated DateTime 02/05/2025 110 mm[Hg] 80 mm[Hg] DARLINE Staples Attn: Accounting,[address] [facility], [place], [address], [place] 02/05/2025 17:42:39 Date Recorded Body height Body mass index (BMI) Body weight Respiratory rate Oxygen saturation Oxygen saturation in Arterial blood by Pulse oximetry Heart rate Systolic blood pressure Diastolic blood pressure Provider Name and Address Organization Details Last Updated DateTime 167.64 cm 26.1 kg/m2 38399.9 6 g 18 /min 98 % 98 % 77 /min 120 mm[Hg] 72 mm[Hg] Roma Wagner MA [facility] 5 17:19:45 Date Recorded Systolic blood pressure Diastolic blood pressure Provider Name and Address Organization Details Last Updated DateTime 03/11/2024 110 mm[Hg] 80 mm[Hg] DARLINE Staples Attn: Accounting,[address] [place], [address], [facility] 03/11/2024 16:06:24 Date Recorded Body weight Body mass index (BMI) Body height Heart rate Oxygen saturation Oxygen saturation in Arterial blood by Pulse oximetry Systolic blood pressure Diastolic blood pressure Provider Name and Address Organization Details Last Updated DateTime 4 37170.4 4 g 28.7 kg/m2 167.64 cm 109 /min 97 % 97 % 130 mm[Hg] 76 mm[Hg] Sue Taylor MA [facility] 15:35:28 Date Recorded Systolic blood pressure Diastolic blood pressure Provider Name and Address Organization Details Last Updated DateTime 08/05/2024 110 mm[Hg] 80 mm[Hg] DARLINE Staples Attn: Accounting,[address] [place], [address], [facility] 08/05/2024 17:04:37 Date Recorded Body height Body mass index (BMI) Body weight Respiratory rate Oxygen saturation Oxygen saturation in Arterial blood by Pulse oximetry Heart rate Systolic blood pressure Diastolic blood pressure Provider Name and Address Organization Details Last Updated DateTime 4 167.64 cm 27.1 kg/m2 69415.5 2 g 18 /min 97 % 97 % 88 /min 126 mm[Hg] 82 mm[Hg] Roma Wagner MA [facility] 4 16:50:45 Social History Question Answer Notes LastModified by Organizat ion Details LastModified Time Tobacco Smoking Status Never Smoker Sue Taylor MA null, [facility] 03/11/2024 15:31:17 Do You Have An Advance Directive? No Information n ot available 03/11/2024 How Many Years Have You Consumed Alcohol? 30 Information not available 03/11/2024 Are You Blind Or Do You Have Difficulty Seeing? No Information n ot available 03/11/2024 What Is Your Level Of Caffeine Consumption? Moderate Information not available 03/11/2024 In The 14 Days Before Symptom Onset, Have You Had Close Contact With A Laboratory-confirm ed COVID-19 While That Case Was Ill? No Information n ot available 03/11/2024 In The 14 Days Before Symptom Onset, Have You Had Close Contact With A Person Who Is Under Investigation For COVID-19 While That Person Was Ill? No Information not available 03/11/2024 Have You Been To An Area Known To Be High Risk For COVID-19? No Information not available 03/11/2024 Are You Deaf Or Do You Have Serious Difficulty Hearing? No Information not available 03/11/2024 What Type Of Diet Are You Following? REGULAR Information n ot available 03/11/2024 Are There Any Guns Present In Your Home? No Information not available 03/11/2024 What Was The Date Of Your Most Recent Tobacco Screening? 02/05/2025 [email or web address] Information not available 02/05/2025 What Is Your Relationship Status? Information not available 03/11/2024 Do You Use Your Seat Belt Or Car Seat Routinely? Yes Information not available 03/11/2024 Do You Have Smoke And Carbon Monoxide Detectors In Your Home? Yes Information not available 03/11/2024 Do You Use Sunscreen Routinely? No Information not available 03/11/2024 Has Tobacco Cessation Counseling Been Provided? No Information not available 03/11/2024 Sex: Female Functional Status Question Answer Note LastModified by Organizat ion Details LastModified Time Do you use any illicit or recreational drugs? No Information not available 03/11/2024 Do you or have you ever used any other forms of tobacco or nicotine? No Information not available 03/11/2024 What is your level of alcohol consumption? Occasional Information not available 03/11/2024 Are you currently employed? No Information not available 03/11/2024 Are you able to care for yourself? Yes Information n ot available 03/11/2024 What is your exercise level? Occasional Information not available 03/11/2024 Mental Status Question Answer Note LastModified by Organization D etails LastModified Time Do you feel stressed (tense, restless, nervous, or anxious, or unable to sleep at night)? [id number] Information not available 03/11/2024 Family History Relationship Description Onset Age of this Age Resolved Age Notes LastModified by Organization Details LastModified Time Brother Harmful pattern of use of alcohol mebyma Not available 2023 15:25:43 Brother Depressive disorder mebyma Not available 2023 15:32:35 Mother Hypertensive disorder mebyma Not available 2023 15:32:48 Mother Malignant lymphoma mebyma Not available 2023 15:33:27 Father Malignant lymphoma mebyma Not available 2023 15:33:27 Medical History Condition Response Acid Reflux (GERD) Y Depression Y Allergies Y Gynecological History Statement/Question Response Menses Monthly N If Post Menopausal, Age at Menopause 51 Obstetrics History GPAL:G 0 P 0 0 0 0 Immunizations Vaccine Type Date Status Note Provider Nam e and Address Organization Details Recorded Time Influenza, split virus, quadrivalent, preservative 9 completed Roma Wagner MA null, [place] [facility] 02/05/2025 17:17:31 COVID-19, mRNA, LNP-S, PF, 30 mcg/0.3 mL dose 1 completed Roma Wagner [place], [place] [facility] 02/05/2025 17:17:31 COVID-19, mRNA, LNP-S, PF, 30 mcg/0.3 mL dose 1 completed Roma Wagner [place], [place] [facility] 02/05/2025 17:17:31 COVID-19, mRNA, LNP-S, PF, 30 mcg/0.3 mL dose, miguel-sucrose 2 completed Roma Wagner [place], [place] [facility] 02/05/2025 17:17:31 Past Encounters Encounter ID Performer Location Encounter Start Date Encounter Closed Date Diagnosis/Indication Diagnosis SNOMED-CT Code Diagnosis ICD10 Code Diagnosis Note [id number] Kings Lyon MD [facility] [email or web address] [address] [place] [address] 03/11/2024 15:02:57 03/11/2024 16:10:46 Cholesterol screening 551234856 Z13.220 fasting lipids ordered Diabetes m ellitus screening 632917985 Z13.1 a1c screening ordered Thyroid di sorder screening 679920122 Z13.29 routine thyroid panel ordered. Long-term drug therapy 152378172 Z79.899 cmp, cbc and b12, folate labs are due Body mass index 25-29 - overweight 802555098 Z68.28 start zepbound injectable therapy. no personal or family hx of Medullary thyroid cancer or MEN conditions . Benign ess ential hypertension 6691414 I10 stable on lisinopril 10mg daily. Gastroesop hageal reflux disease without esophagitis 232914077 K21.9 stable on omeprazole 20mg daily. [id number] Kings Lyon MD [facility] [email or web address] [address] [place] [address] 08/05/2024 16:36:18 08/05/2024 17:27:41 Adult health examination 923271328 Z00.00 Annual wellness exam completed Long-term drug therapy 817025266 Z79.899 Labs are currently up-to-date and performed annually Benign ess ential hypertension 5274678 I10 stable on lisinopril 10mg daily. Hyperlipidemia 58083717 E78.5 Total cholestero l 215, triglyceri manuela 113, HDL 59 and LDL 136. Patient will continue dietary and exercise modificati ons for management Body mass index 25-29 - overweight 283744399 Z68.27 BMI is 27.1 [id number] Kings Lyon MD [facility] [email or web address] [address] [place] [address] 02/05/2025 17:05:10 02/10/2025 16:08:53 Benign essential hypertension 0022878 I10 stable on lisinopril 10mg daily. 110/80 on exam today Hyperlipidemia 78696619 E78.5 Patient LDL in July 2024 was 136 triglyceri manuela 113 HDL 59 and total 215. She is managing risks with her weight loss and exercise. Long-term drug therapy 974549735 Z79.899 Labs will be due in July fasting Gastroesop hageal reflux disease without esophagitis 493653653 K21.9 stable on omeprazole 20mg daily. Cholesterol screening 27 9005291 Z13.220 fasting lipids ordered for July Diabetes m ellitus screening 377309709 Z13.1 a1c screening ordered for July Thyroid di sorder screening 773918095 Z13.29 Routine thyroid function testing ordered for July Overweight in adulthood with body mass index of 25 or more but less than 30 088350493 E66.3 Z68.26 BMI 26.1 Health Concerns Section Related Observation LastModified by Organization Detai ls LastModified Time None Recorded Concern Status LastModified by Organization Details LastModified Time None Recorded Advance Directives Directive N: Payers Encounter Date Sequence Insurance Name Policy Number Policy [place] Covered Member ID Machado Member ID Guarantor Name 03/11/2024 1 [facility] [id number] Kary Gabriella [id number] Kary Gabriella 08/05/2024 1 [facility] [id number] Kary Quiroz [id number] Kary Gabriella 02/05/2025 1 [facility] [id number] Karyclari Mccrackenon [id number] Kary Gabriella Notes Date Note Type Note Provider Name and Address Organization Details Recorded Time 03/11/20 24 text/htm l HypertensionReported bypatient.Notes:pt is stable on lisinopril 10mg daily.Reflux/GERDReported bypatient.Notes:stable on omeprazole 20mg daily. no c/o. DARLINE Staples Attn: Accounting,[address] [facility], [place], [address], [facility] 04/06/2024 21:45:50 08/05/20 24 text/htm l HypertensionReported bypatient.Notes:pt is stable on lisinopril 10mg daily. DARLINE Staples Attn: Accounting[address] [facility], [place], [address], [facility] 08/06/2024 00:06:29 02/06/20 25 text/htm l HyperlipidemiaReported bypatient.Notes:Mild hyperlipidemia noted on her last labs. She has been doing diet and exercise modifications to manageHypertensionReported bypatient.Notes:pt is stable on lisinopril 10mg daily.Reflux/GERDReported bypatient.Notes:stable on omeprazole 20mg daily. no c/o. All routine labs are still due DARLINE Staples Attn: Accounting[address] [place], [address], [place] - [facility] 02/17/2025 00:56:18 OBGyn Episode No OBEpisode recorded.
--- OUTSIDE RECORDS SUMMARY | 2025-03-17 11:11 | XMS_ITS | Data Portability ---
Author Organization [facility] [place] Address [address] [place] [address] Care Team Providers Care Engineering Technical Analyst Name Role Phone TESSIE CARLOS Primary Care Provider [phone] Assessment Encounter Date Assessment Date Assessment LastModified by Organization Details LastModified Time 01/12/2022 01/12/2022 mammogram order given Not available 01/12/2022 17:35:39 07/05/2023 07/05/2023 Annual gynecological exam performed. Patient will come back in a year unless there are new symptoms. Suggest Calcium with Vitamin D if not eating in diet. Patient advised to get annual flu shot. Recommend yearly physicals and preform monthly breast exams. Genetic testing is available for patients with family history of cancer. Engage in safe sexual practices, use condoms. Encouraged to have daily exercise. Avoid tobacco and illicit drugs, moderation of alcohol. If BMI greater than 25 dietary consult advised. If you have any questions please call or email. [email or web address] Not available 07/05/2023 20:14:15 08/28/2024 08/28/2024 Annual gynecological exam performed. Patient will come back in a year unless there are new symptoms. [email or web address] Not available 08/28/2024 16:27:36 Plan of Treatment Reminders Order Date Submit Date Provider Last Modified By Organization Details Last Modified Time Details Appointments None recorded. Lab None recorded. Referral None recorded. Procedures None recorded. Surgeries None recorded. Imaging None recorded. Medication Orders fluconazole 150 mg tablet 2023 024 [facility][id number], [address] [place], [place], [id number], 4 17:14:59 Patient TargetsNo targets recorded. Patient Instructions Encounter Date Encounter Id Patient Instructions Last Modified By Organization Details Last Modified Time 10/28/2020 [id number] normal bre quiroz Not available 18:57:12 Reason for Referral None Reported. Results Created Date Observation Date Name Description Value Unit Range Abnormal Flag Note LastModifiedBy Organization Detail LastModifiedTime 01/13/20 22 01/12/2022 IMAGE GUIDE D PAP AND HPV REGAR DLESS image guided Pap, HPV regardless of Pap result SEE RESULT S BELOW CASE REPOR T: Cytol ogy Gynec ologi anjum Repor t Case: [id number] Autho jennifer oconnor Provi mar: Carol Cordova NP Colle cted: 01/12 1754 Order ing Locat ion: [place] Patho log[facility] Recei minh: 01/13 0042 First Scree n: Kayode Walters CT Speci men: Scresushma dobsong Pap - Image d, Cervi x STATE MENT OF ADEQU ACY: Satis facto ry for evalu ation Trans forma tion zone compo nent prese nt FINAL DIAGN OSIS: Negat samantha for Intra epith elial Lesio n or Thuy ferrer (NIL) . Alyson craven d by Kayode Walters, CT on 2021 at 11:21 AM ----- ----- ----- ----- ----- ----- ----- ----- ----- ----- ----- ----- ----- ----- ----- ----- ----- ---- HPV RESUL TS: HPV mRNA E6/E7 : No HPV mRNA Detec jody NOTE: This high risk HPV mRNA assay detec ts fourt een high- risk HPV types (16, 18, 31, 33, 35, 39, 45, 51, 52, 56, 58, 59, 66, 68) witho ut diffe renti ation . COMME NT: Note: This speci men was revie wed by a Cytot echno logis t and/o r Patho logis t (as indic ated in this repor t) after evalu ation using the Thinp rep Imagi ng Syste m. CLINI ANJUM INFOR MATIO N: Menst rual Statu s: LMP (if appli cable ): Clini anjum Histo ry/Pr eviou s Pap: Type of Neopl maury (if appli cable ): Signi fican t Clini anjum Findi ngs: Other Histo ry: Hormo jerson (if appli cable ): PAP EDUCA BELKYS L NOTE: The Pap Test is a scree keli test with an inher ent false negat samantha rate. Liqui d-bas ed sampl ing may decre ase, but will not elimi sushila, false negat samantha resul ts. A negat samantha resul t does not precl ude the prese nce and/o r devel opmen t of disea se, since the prese nce of abnor mal cells in the sampl e depen ds on the locat ion of the lesio n and sampl ing techn ique. Jorje nued regul ar scree keli is the best metho d of cance r preve ntion . If repor jody cytol ogic findi ng do not corre late with physi anjum and/o r histo rical findi ngs, furth er inves tigat ion is recom lalito d, as clini danielle osborn nted. Not Available [facility] (Lab) [address], [place], [address], 01/19/2022 12:24:00 07/05/20 23 07/05/2023 IMAGE GUIDE D PAP AND HPV REGAR DLESS image guided Pap, HPV regardless of Pap result SEE RESULT S BELOW CASE REPOR T: Cytol ogy Gynec ologi anjum Repor t Case: [id number] Autho jennifer oconnor Provi mar: Carol Cordova NP Colle cted: 07/05 1733 Order ing Locat ion: [place] Patho [place] Recei minh: 07/06 0725 First Scree n: Nodami ni, Edson ed, CT Rescr een: Kelly burgos, Reinaldo gambino, CT Speci men: Scree keli Pap - Image d, Cervi x STATE MENT OF ADEQU ACY: Satis facto ry for evalu ation Trans forma tion zone compo nent prese nt FINAL DIAGN OSIS: Negat samantha for Intra epith elial Lesio n or Thuy ferrer (NIL) . Elect serg joseanatoly merissa d by Kelly burgos, Reinaldo gambino, CT on 2022 at 5:35 PM ----- ----- ----- ----- ----- ----- ----- ----- ----- ----- ----- ----- ----- ----- ----- ----- ----- ---- HPV RESUL TS: HPV mRNA E6/E7 : No HPV mRNA Detec jody NOTE: This high risk HPV mRNA assay detec ts fourt een high- risk HPV types (16, 18, 31, 33, 35, 39, 45, 51, 52, 56, 58, 59, 66, 68) witho ut diffe renti ation . COMME NT: This speci men was revie wed by a Cytot echno logis t and/o r Patho logis t (as indic ated in this repor t) after evalu ation using the Thinp rep Imagi ng Syste m. CLINI ANJUM INFOR MATIO N: Menst rual Statu s: LMP (if appli cable ): Clini anjum Histo ry/Pr eviou s Pap: Type of Neopl maury (if appli cable ): Signi fican t Clini anjum Findi ngs: Other Histo ry: Hormo jerson (if appli cable ): PAP EDUCA BELKYS L NOTE: The Pap Test is a scree keli test with an inher ent false negat samantha rate. Liqui d-bas ed sampl ing may decre ase, but will not elimi sushila, false negat samantha resul ts. A negat samantha resul t does not precl ude the prese nce and/o r devel opmen t of disea se, since the prese nce of abnor mal cells in the sampl e depen ds on the locat ion of the lesio n and sampl ing techn ique. Jorje nued regul ar scree keli is the best metho d of cance r preve ntion . If repor jody cytol ogic findi ng do not corre late with physi anjum and/o r histo rical findi ngs, furth er inves tigat ion is recom lalito d, as clini danielle osborn nted. Not Available [facility] (Lab) [address], [place], [address], 07/10/2023 18:39:44 07/07/20 23 05/17/2022 MAMMO , scree keli, bilat eral No observ ation record ed. [address] [facility], [place], [address], 07/11/2023 08:25:46 03/07/20 24 03/07/2024 MAMMO , scree keli, bilat eral No observ ation record ed. [address] [address], [place], [address], 03/08/2024 17:45:41 03/12/20 24 03/12/2024 US, sincere t, shivam teral No observ ation record ed. [address], [address], 03/18/2024 11:32:18 Result Notes None recorded. Procedures Surgical History Date Name Laterality Status Provider Name and Address Organization Details Recorded Time 08/28/20 24 Date of Last Pap Smear completed Courtney Weeks [facility] 08/28/2024 16:28:51 03/07/20 24 Date of Last Mammogram completed Courtney Weeks [facility] 08/28/2024 16:30:29 10/09/19 17 cholecystectomy completed Courtney Weeks [facility] 01/12/2022 19:48:57 10/09/19 15 Unlisted px foot/toes completed Courtney Weeks [facility] 01/12/2022 19:49:24 07/03/20 01 section completed Courtney Weeks [facility] 01/12/2022 19:48:37 Imaging Results None recorded. Procedure Notes None recorded. Medical Equipment None Reported. Allergies Allergen ID Allergen Name Allergen Category Reaction Reaction Severity Criticality Documentation Date Start Date Code Code System Note Provider Name and Address Organization Details Recorded Time 17526 Product containin g penicilli n (product) medicatio n Not available Not available Not available 09/25/2020 91062 8001 SNOMED Comme nt: [facility]at [facility]; Not Available [facility] 0 14:17:58 Medications Name Sig Start Date Stop Date Status Note LastModified by Organization Details LastModified Time progester one 220mg ar caps (#00) TAKE one Capsule BY MOUTH ONCE DAILY 1-2 hours BEFORE bed active Not Available Not Available No t Available t3/t4 liothy/le vothy 10/40 mcg ar caps (#1) Take one Capsule by mouth every morning On an empty stomach at least 30 minutes BEFORE food or medicati ons active Not Available Not Available No t Available azithromy jie 250 mg tablet TK 2 TS PO ON DAY 1, THEN TK 1 T PO D FOR 4 DAYS 08/28 completed Not Available Not Available Not Available fluconazo le 150 mg tablet take 1 tablet by mouth now, repeat in 72 hours 2023 active Not Available Not Available Not Avai lable benzonata te 200 mg capsule TAKE 1 CAPSULE BY MOUTH THREE TIMES DAILY NEEDED 08/28 completed Not Available Not Available Not Available lisinopri l 10 mg tablet TAKE 1 TABLET BY MOUTH DAILY active Not Available Not Available No t Available omeprazol e 20 mg capsule,d elayed release TAKE 1 CAPSULE BY MOUTH TWICE DAILY NEEDED active Not Available Not Available No t Available lisinopri l 5 mg tablet take 1 tablet by oral route every day 07/05 completed Prescrib ed Elsewher e: Yes Loca tion: [facility] odify By: nena fregoso DateTime : 09/11/20 17 04:15:00 PM Not Available Not Available Not Available Vaniqa 13.9 % topical cream apply by topical route 2 times every day a thin layer to the affected area(s) 09/24 completed Prescrib ed Elsewher e: No Locat ion: [facility]y ord[facility] By: shane marroquin DateTime : 06/25/20 13 05:15:00 PM Not Available Not Available Not Available Protonix 40 mg granules delayed-r elease packet take 1 packet by oral route every day mixed in 1 teaspoon ful of applesau ce or apple juice 09/11 completed Prescrib ed Elsewher e: Yes Loca tion: [facility] ord[facility] By: nena fregoso DateTime : 09/24/20 14 05:00:00 PM Not Available Not Available Not Available Lo Loestrin Fe 1 mg-10 mcg (24)/10 mcg (2) tablet take 1 tablet by oral route every day 09/24 completed Prescrib ed Elsewher e: No [facility] By: shane marroquin DateTime : 03/20/20 12 04:45:00 PM Not Available Not Available Not Available Vitals Date Recorded Body height Body mass index (BMI) Body weight Systolic blood pressure Diastolic blood pressure Provider Name and Address Organization Details Last Updated DateTime 01/12/2022 162.56 cm 30.4 kg/m2 15524.85 g 119 mm[Hg] 79 mm[Hg] Courtney Weeks [facility] 2 18:51:31 Date Recorded Body height Body mass index (BMI) Body weight Systolic blood pressure Diastolic blood pressure Provider Name and Address Organization Details Last Updated DateTime 07/05/2023 167.64 cm 30 kg/m2 14911.18 g 118 mm[Hg] 78 mm[Hg] Courtney Weeks [facility] 3 17:52:08 Date Recorded Body height Body mass index (BMI) Body weight Systolic blood pressure Diastolic blood pressure Provider Name and Address Organization Details Last Updated DateTime 08/28/2024 167.64 cm 26.5 kg/m2 01551.15 g 120 mm[Hg] 79 mm[Hg] Courtney Weeks [facility] 16:28:06 Social History Question Answer Notes LastModified by Organizat ion Details LastModified Time Tobacco Smoking Status Never Smoker Courtney Weeks [facility], [facility] 10/31/2020 14:28:44 Are You Blind Or Do You Have Difficulty Seeing? No [email or web address] Information n ot available 01/12/2022 What Is Your Level Of Caffeine Consumption? Occasional [email or web address] Information not available 10/31/2020 How Much Tobacco Do You Chew? None [email or web address] Information not available 10/31/2020 In The 14 Days Before Symptom Onset, Have You Had Close Contact With A Laboratory-confirm ed COVID-19 While That Case Was Ill? No [email or web address] Information n ot available 01/12/2022 In The 14 Days Before Symptom Onset, Have You Had Close Contact With A Person Who Is Under Investigation For COVID-19 While That Person Was Ill? No [email or web address] Information not available 01/12/2022 Have You Been To An Area Known To Be High Risk For COVID-19? No [email or web address] Information not available 01/12/2022 Are You Deaf Or Do You Have Serious Difficulty Hearing? No [email or web address] Information not available 01/12/2022 What Type Of Diet Are You Following? REGULAR [email or web address] Information n ot available 01/12/2022 What Was The Date Of Your Most Recent Tobacco Screening? 08/28/2024 [email or web address] Information not available 08/28/2024 Have You Ever Been Counseled For Unhealthy Alcohol Use? No [email or web address] Information not available 01/12/2022 Do You Use Your Seat Belt Or Car Seat Routinely? Yes [email or web address] Information not available 01/12/2022 Do You Have Smoke And Carbon Monoxide Detectors In Your Home? Yes [email or web address] Information not available 01/12/2022 How Much Tobacco Do You Smoke? No [email or web address] Information not available 10/31/2020 Do You Use Sunscreen Routinely? Yes [email or web address] Information not available 01/12/2022 Has Tobacco Cessation Counseling Been Provided? No [email or web address] Information not available 01/12/2022 Do You Have Difficulty Walking Or Climbing Stairs? No [email or web address] Information not available 01/12/2022 Sex: Unknown Functional Status Question Answer Note LastModified by Organizat ion Details LastModified Time Do you use any illicit or recreational drugs? No [email or web address] Information not available 01/12/2022 Do you or have you ever used any other forms of tobacco or nicotine? No [email or web address] Information not available 01/12/2022 What is your level of alcohol consumption? Occasional [email or web address] Information not available 10/31/2020 Do you or have you ever used smokeless tobacco? Never used smokeless tobacco [email or web address] Information not available 10/31/2020 Are you able to walk? YESWOREST [email or web address] Information not available 01/12/2022 Are you able to care for yourself? Yes [email or web address] Information not available 01/12/2022 Do you have difficulty dressing or bathing? No [email or web address] Information not available 01/12/2022 Do you or have you ever used e-cigarettes or vape? Never used electronic cigarettes [email or web address] Information not available 10/31/2020 What is your exercise level? Moderate [email or web address] Information not available 10/31/2020 Mental Status Question Answer Note LastModified by Organization D etails LastModified Time Do you feel stressed (tense, restless, nervous, or anxious, or unable to sleep at night)? [id number] Information not available 01/12/2022 Family History Relationship Description Onset Age of this Age Resolved Age Notes LastModified by Organization Details LastModified Time Maternal Aunt Malignant tumor of breast 70 Not available 01/12 19:46:25 Maternal Aunt Malignant tumor of breast 70 [email or web address] Not available 01/12 19:46:30 Maternal Aunt Diabetes mellitus [email or web address] Not available 01/12 19:47:44 Father Malignant tumor of stomach 55 [email or web address] Not available 01/12 19:46:51 Mother Hypertensive disorder [email or web address] Not available 01/12 19:47:22 Paternal Uncle Diabetes mellitus Not available 01/12 19:47:34 Notes:Father: cancer, gastri c Maternal aunt: Diabetes mellitus, Cancer, breast Mother: Hypertension Paternal uncle: Diabetes mellitus Medical History Condition Response Allergies (Food, seasonal, environmental ) N Other N Breast Cancer N Drug/Latex Allergies/Reactions Y Blood Transfusion N Dermatologic Disorders N Lung Disease N Defects or Inherited Disease N Breast Problem N Gestational Diabetes N Hematologic disorders N Anesthesia Complications N History of STI N Deep Vein Thrombosis N Polycystic ovary syndrome N Anxiety Disorder N Autoimmune disease N Arthritis N Infertility N Polyps N Acid Reflux (GERD) Y History of abnormal pap N Cancer N Stroke N Varicosities N Neurologic/Epilepsy N Endometriosis N High Cholesterol N Headaches N Fibromyalgia N Kidney Disease N Heart Problems N Kidney or Bladder Problems N Thyroid Problems N GI Problems Y Eating Disorder N Anemia N Art (IVF or FET) N Psychiatric Illness N Ovarian Cancer N Diabetes N Pulmonary (TB, Asthma) N Hepatitis/Liver Disease N No Past Medical History N Eczema N Urinary Tract Infection N Abuse/Domestic Violence N Asthma N Trauma/Violence N Depression/ depression N Heart Disease N Pre-Eclampsia N Hypertension Y Osteoporosis N Thrombophilias N Gynecological History Statement/Question Response Abnormal Pap N Date of Last Mammogram 03/07/2024 Date of LMP 11/29/2022 STIs/STDs N Date of DEXA bone scan Date of Last Pap Smear 08/28/2024 Current Control Method Menopause LMP Approximate Obstetrics History GPAL:G 3 P 1 1 1 2 Type Value Full Term 1 Spontaneous 1 Premature 1 Living 2 Total 3 Past Encounters Encounter ID Performer Location Encounter Start Date Encounter Closed Date Diagnosis/Indication Diagnosis SNOMED-CT Code Diagnosis ICD10 Code Diagnosis Note [id number] Carol Miranda CNM [facility] [address] [address] 10/28/2020 18:21:32 10/29/2020 14:39:20 Gynecologic examination 31725546 Z01.419 Suggest Calcium with Vitamin D if not eating in diet. Patient advised to get annual flu shot. Recommend yearly physicals and preform monthly breast exams. Genetic testing is available for patients with family history of cancer. Engage in safe sexual practices, use condoms. Encouraged to have daily exercise. Avoid tobacco and illicit drugs, moderation of alcohol. If BMI greater than 25 dietary consult advised. If you have any questions please call or email. [id number] Carol Miranda CNM [facility] [address],[place] [address] 01/12/2022 16:56:23 01/12/2022 17:41:09 Gynecologic examination 43641274 Z01.419 Suggest Calcium with Vitamin D if not eating in diet. Patient advised to get annual flu shot. Recommend yearly physicals and preform monthly breast exams. Genetic testing is available for patients with family history of cancer. Engage in safe sexual practices, use condoms. Encouraged to have daily exercise. Avoid tobacco and illicit drugs, moderation of alcohol. If BMI greater than 25 dietary consult advised. If you have any questions please call or email. [id number] Carol Miranda CNM [place] [address],[place] [address] 07/05/2023 17:40:25 07/06/2023 17:30:14 Gynecologic examination 87091695 Z01.419 Z11.51 Suggest Calcium with Vitamin D if not eating in diet. Patient advised to get annual flu shot. Recommend yearly physicals and preform monthly breast exams. Genetic testing is available for patients with family history of cancer. Engage in safe sexual practices, use condoms. Encouraged to have daily exercise. Avoid tobacco and illicit drugs, moderation of alcohol. If BMI greater than 25 dietary consult advised. If you have any questions please call or email. [id number] SADI Valencia [place] [address],[facility] [place] [address] 08/28/2024 16:16:33 08/30/2024 09:13:29 Gynecologic examination [id number] Z01.419 wwepostmen opausalpap not due todaydecli fernando STI screenmamm ogram UTDcolonos copy UTDroutine labs UTD/PCP Suggested Calcium with Vitamin D daily. Patient advised to get an annual flu shot in the fall and she could obtain at [facility] or [facility] care clinic. Also to obtain TDap vaccinatio n if you have not had one in the last 10 years. Recommend yearly mammograms . Encouraged monthly self breast exams. Encourage safe sexual practices, to use condoms and limit partners if not already in a monogamous relationsh ip. Engage in regular exercise. Avoid tobacco and illicit drugs. This lifestyle behavior pattern will lead to less health conditions and longer life span. If BMI greater than 25 dietary consult advised. All questions have been answered. Vaginitis 18319092 N76.0 rx sent for yeastvagin itis panel sentvulvar care guidelines discussed Health Concerns Section Related Observation LastModified by Organization Detai ls LastModified Time None Recorded Concern Status LastModified by Organization Details LastModified Time None Recorded Advance Directives Directive None Recorded Payers Encounter Date Sequence Insurance Name Policy Number Policy Machado Covered Member ID Machado Member ID Guarantor Name 10/28/2020 1 [facility] [id number] [employer] [place] [id number] [employer] [place] 01/12/2022 1 [facility] [id number] [employer] [place] [id number] [employer] [place] 07/05/2023 1 [facility] ([place]) [id number] [employer] [place] [id number] [employer] [place] 08/28/2024 1 [facility] [id number] [employer] [place] [id number] Yfn Weiss Lucretia Notes Date Note Type Note Provider Name and Address Organization Details Recorded Time 1 text/html wwe, does sbe mammogram wnl in aug 2020, no complaints, exercises daily, Carol Miranda, ESTEFANY [address], [place], [address], [facility] 10/28/2020 18:57:57 2 text/html Annual GYNReported bypatient.Menstrual cycle:irreg cycles Vagina:Normal vaginal discharge Breast:No breast pain; No breast lump; No nipple discharge Sexual complaints:No sexual complaints; No pain during intercourse; Normal libido Menopausal Symptoms:No menopausal symptoms; Normal vaginal lubrication Psychological symptoms:No depression; No anxiety; No PMDD Preventive measures:Encourage self breast examination; Encourage regular exercise; Encourage no tobacco use; Encourage regular mammograms starting age 40Notes:irreg cycles reviewed precautions for bleeding, occ hot flashes, no other sxs Craol Miranda CNM [address], [place], [address], [facility] 01/12/2022 17:35:43 3 text/html Annual GYNReported bypatient.History:no gynecologic complaints Menstrual cycle:Normal menses Urinary symptoms:No hematuria; No incontinence Vulva:No genital lesion Vagina:Normal vaginal discharge Breast:No breast pain; No breast lump; No nipple discharge Sexual complaints:No sexual complaints; No pain during intercourse; Normal libido Menopausal Symptoms:No menopausal symptoms; Normal vaginal lubrication Psychological symptoms:No depression; No anxiety; No PMDD Preventive measures:Encourage self breast examination; Encourage regular exercise; Encourage regular mammograms starting age 40Notes:no hx abnl pap, prefers pap, mammograms done will get copies, no complaints, still monitoring cycle, went to [place], mom over the summer Carol Miranda CNM [address], [place], [address], [facility] 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 Post-MenopausalReported bypatient.Menopausal Symptoms:no menopausal symptoms; normal vaginal lubrication Vaginal Bleeding:history of menopause having occurred; no history of post menopausal bleeding Urinary Symptoms:no hematuria; no incontinence; no nocturia; no urinary frequency Vulva:no genital lesion; no vulvar atrophy Vagina:no vaginal atrophy;white;vaginal itching Breast:no breast lump; no nipple discharge; no breast pain Sexual Complaints:no sexual complaints Psychological Symptoms:no depression; no anxiety Preventive Measures:encourage regular mammograms starting age 40; encourage self breast examination; encourage regular exercise; encourage no tobacco useNotes:54yo WWEpostmenopausalpap last 06/2023 : nilm, HPV (-)mammogram last 4colonoscopy UTD vaginal itching/irritation, chunky discharge on oral progesterone and topical estrogen cream prescribed by an HRT clinic SADI Valencia [address], [place], [address], [facility] 08/29/2024 13:31:52 OBGyn Episode Ob Episode Information Episode Created Date Number of Fetuses Patient Bloodtype Patient rh Status Prepregnancy Weight lbs Domestic Partner Domestic Partner Phone Father Name Compliance Representative Status 01/13/20 22 1 CLOSED Fetus Data First Name Last Name Admitted to NICU Weight (g) Sex Living Outcome Pediatric Complications Fetus ID Race Codes Race Delivery Type , Spontane ous [id number] Micheal Calculation Initial Micheal Date Initial Exam Date Initial Exam Provider Initial Ultrasound Date Last Menstrual Period Date Ultra Sound Weeks Gestation 0 Eighteen To Twenty Week Micheal Update Ultra Sound Date Fundal Height At Umbil Quickening Date Ultra Sound Latest Weeks Gestation Final Micheal Confirmed By Final Micheal Confirmed Date Final Micheal Date Ultra Sound Latest Days Gestation 0 0 Menstrual History Last Menstrual Date Menses Monthly On Bcp Conception Prior Menses Frequency Hcg Plus Date Menarche Onset Age Delivery Information Delivery Date Delivery Type Labor Anesthesia Weeks Gestation Incision Type Labor Labor Length Hrs Delivered By Post Complications Tubal Sterilization Discharge Date Comments 0 Discharge Information Feeding Method Contraceptive Method Maternal HG B and HCT Levels Ob Episode Information Episode Created Date Number of Fetuses Patient Bloodtype Patient rh Status Prepregnancy Weight lbs Domestic Partner Domestic Partner Phone Father Name Compliance Representative Status 01/13/20 22 1 CLOSED Fetus Data First Name Last Name Admitted to NICU Weight (g) Sex Living Outcome Pediatric Complications Fetus ID Race Codes Race Delivery Type [id number] F Full Term [id number] Primary Micheal Calculation Initial Micheal Date Initial Exam Date Initial Exam Provider Initial Ultrasound Date Last Menstrual Period Date Ultra Sound Weeks Gestation 0 Eighteen To Twenty Week Micheal Update Ultra Sound Date Fundal Height At Umbil Quickening Date Ultra Sound Latest Weeks Gestation Final Micheal Confirmed By Final Micheal Confirmed Date Final Micheal Date Ultra Sound Latest Days Gestation 0 0 Menstrual History Last Menstrual Date Menses Monthly On Bcp Conception Prior Menses Frequency Hcg Plus Date Menarche Onset Age Delivery Information Delivery Date Delivery Type Labor Anesthesia Weeks Gestation Incision Type Labor Labor Length Hrs Delivered By Post Complications Tubal Sterilization Discharge Date Comments 1 40.2 Discharge Information Feeding Method Contraceptive Method Maternal HG B and HCT Levels Ob Episode Information Episode Created Date Number of Fetuses Patient Bloodtype Patient rh Status Prepregnancy Weight lbs Domestic Partner Domestic Partner Phone Father Name Compliance Representative Status 07/05/20 23 1 CLOSED Fetus Data First Name Last Name Admitted to NICU Weight (g) Sex Living Outcome Pediatric Complications Fetus ID Race Codes Race Delivery Type [id number] Full Term [id number] Vaginal Delivery Micheal Calculation Initial Micheal Date Initial Exam Date Initial Exam Provider Initial Ultrasound Date Last Menstrual Period Date Ultra Sound Weeks Gestation 0 Eighteen To Twenty Week Micheal Update Ultra Sound Date Fundal Height At Umbil Quickening Date Ultra Sound Latest Weeks Gestation Final Micheal Confirmed By Final Micheal Confirmed Date Final Micheal Date Ultra Sound Latest Days Gestation 0 0 Menstrual History Last Menstrual Date Menses Monthly On Bcp Conception Prior Menses Frequency Hcg Plus Date Menarche Onset Age Delivery Information Delivery Date Delivery Type Labor Anesthesia Weeks Gestation Incision Type Labor Labor Length Hrs Delivered By Post Complications Tubal Sterilization Discharge Date Comments 8 Discharge Information Feeding Method Contraceptive Method Maternal HG B and HCT Levels
--- OUTSIDE RECORDS SUMMARY | 2025-03-17 11:11 | XMS_ITS | Clinical Summary ---
Author Organization [facility] Address [address] [address] Care Team Providers Care Registered Nurse Teacher Name Role Phone Hugo Banegas MD Primary Care Provider [phone] Source Comments [facility],non-owned Affiliates and Associated Physician Practices is amultiple site organization consisting of ambulatory clinics and hospital sitesin [place], [place], [place] and [place]. This disclosure is being madepursuant to the Care Everywhere program and may not contain all information available regarding this patient. Last updated 18.[facility] Allergies Active Allergy Reactions Criticality Noted Date Comments Penicillins Swelling 04/01/2015 Arm reddened and swelling when given IV PCN Medications * Be aware that medications may not be up to date on this document. Alwaysverify current medications with the patient. ibuprofen (MOTRIN) 200 MG tablet Take 200 mg by mouth every 6 hours as needed for Pain Active oxyCODONE-aceta minophen (PERCOCET) 5-325 MG tablet Take 1 Tab by mouth every 4 hours as needed for Pain (severe pain) 30 Tab 04/06/2017 Active ondansetron (ZOFRAN) 4 MG tablet Take 1 Tab by mouth every 4 hours as needed for Nausea/Vomit ing (Take 1 tab 15-30 minutes prior to taking pain medication) 30 Tab 04/06/2017 Active Active Problems Problem Noted Date Diagnosed Date Intractable nausea and vomiting 04/02/2015 Family History Medical History Relation Name Comments Cancer Father Relation Name Status Comments Father Social History Tobacco Use Types Packs/Day Years Used Date Smoking Tobacco: Never Smokeless Tobacco: Never Alcohol Use Standard Drinks/Week Comments Yes 0.8 (1 standard drink = 0.6 oz p ure alcohol) rare Comments No Sex and Gender Information Value Date Recorded Sex Assigned at Not on file Legal Sex Female 12:59 PM CDT Gender Identity Not on file Sexual Orientation Not on file Last Filed Vital Signs Vital Sign Reading Time Taken Comments Blood Pressure 88/70 04/06/2017 2:20 PM CDT Pulse 60 04/06/2017 2:00 PM CDT Temperature 35.8 C (96.5 F) 04/06/2017 2:15 PM CDT Respiratory Rate 11 04/06/2017 2:00 PM CDT Oxygen Saturation 100% 04/06/2017 2:23 PM CDT Inhaled Oxygen Concentration - - Weight 81.2 kg (179 lb) 04/06/2017 10:12 AM CDT Height 167.6 cm (5' 6) 04/06/2017 10:12 AM CDT Body Mass Index 28.89 04/06/2017 10:12 AM CDT Plan of Treatment Health Maintenance Due Date Last Done Comments COLOGUARD (AGES 45-75) - COL ON CA SCREENING 1971 COLON MONITORING 1971 COLONOSCOPY - COLON CA SCREENING 1971 CT COLONOGRAPHY - COLON CA SCREENING 1971 Colorectal Cancer Screening 1971 FIT - COLON CA SCREENING 1971 FLEX SIG - COLON CA SCREENING 1971 LIPID TESTING 1971 MAMMOGRAM 1971 HIV SCREENING 1986 HEPATITIS C SCREENING 07/23/1989 DTAP/TDAP/TD VACCINES (1 - Tdap) 1990 HEPATITIS B VACCINE (1 of 3 - 19+ 3-dose series) 1990 PNEUMOCOCCAL VACCINE 50+ (1 of 1 - PCV) 2021 ZOSTER VACCINE (1 of 2) 2021 COVID-19 VACCINE ( - 2023-2 5 season) 2024 DEPRESSION SCREENING 10/09/2024 INFLUENZA VACCINE (Season Ended) 2025 HIB VACCINE Aged Out No longer eligi ble based on patient's age to complete this topic HPV VACCINE Aged Out No longer eligi ble based on patient's age to complete this topic MENINGOCOCCAL (Group B) VACC INE SHARED DECISION-MAKING Aged Out No longer eligibl e based on patient's age to complete this topic MENINGOCOCCAL GROUPS A/C/Y/W VACCINE Aged Out No longer eligible b ased on patient's age to complete this topic Medical Devices Implanted Type Area Bungy Jump Master Device Identifier Shelf Expiration Date Model / Serial / Lot 3 Hole Plate Implanted:Qty: 1 on 04/02/2015 by Roger Carlson DPM at [facility] Right: Toe [employer] [id number] / / Description:2nd toe, implant from sterile tray Locking Screw Implanted:Qty: 2 on 04/02/2015 by Roger Carlson DPM at [facility] Right: Toe [employer] [id number] / / Description:On 2nd right toe , came from sterile set 3 Hole Plate Implanted:Qty: 1 on 04/02/2015 by Roger Carlson DPM at [facility] Right: Toe [employer] [id number] / / Description:On 5th right toe , came off from sterile set. Locking Screw Implanted:Qty: 2 on 04/02/2015 by Roger Carlson DPM at [facility] Right: Toe [employer] [id number] / / Description:on 5th right toe , 3 total usage, 1 wasted, 2 implanted, came from sterile set Wire K .045in X 5.5in Implanted:Qty: 3 on 04/02/2015 by Roger Carlson DPM at [facility] Right: Toe [employer] [id number] / / Description:first wire in 3r d toe, 2nd wire in 4th toe, third wire in 2nd toe, came from sterile set Screw 2mm 12mm Forefoot Lck Ortholoc Ti Implanted:Qty: 3 on 04/06/2017 by Roger Carlson DPM at [facility] Left: Foot [employer] [id number] / / 3 Hole Plate Implanted:Qty: 1 on 04/06/2017 by Roger Carlson DPM at [facility] Left: Foot [employer] [id number] / / Wire K .045in 6in 2 Troc Smth Fx Strl Implanted:Qty: 1 on 04/06/2017 by Roger Carlson DPM at [facility] Left: Foot [employer] [id number] / / [id number] [place] 1.4 - 1.6cm Implanted:Qty: 1 on 04/06/2017 by Roger Carlson DPM at [facility] Left: Foot [employer] 11/07/2020 [id number] / / [id number] Wire K .045in 6in 2 Troc Smth Fx Strl Implanted:Qty: 1 on 04/06/2017 by Roger Carlson DPM at [facility] Left: Foot [employer] 10/27/2020 [id number] / / [id number] Wire K .045in 6in 2 Troc Smth Fx Strl Implanted:Qty: 1 on 04/06/2017 by Roger Carlson DPM at [facility] Left: Foot [employer] 01/12/2021 [id number] / / [id number] Wire K .045in 6in 2 Troc Smth Fx Strl Implanted:Qty: 1 on 04/06/2017 by Roger Carlson DPM at [facility] Left: Foot [employer] 10/21/2020 [id number] / / [id number] Insurance Advance Directives * Full Code (Latest Code Status on File) Date Activated Date Inactivated Comments 04/02/2015 8:49 PM 04/03/2015 12:11 PM * Full Code Date Activated Date Inactivated Comments 04/02/2015 8:10 PM 04/02/2015 8:49 PM Care Teams Registered Nurse Teacher Relationship Specialty Start Date End Date Hugo Banegas MD [facility] [place] [address] PCP - General Family Medicine 04/04/17
== END 2025-03-17 10:03 | disposition home or self-care (01) ==
PROVIDERS: PCP Physician Assistant; Visit Provider Advanced Practice Midwife
DX: Z12.31 Encounter for screening mammogram for malignant neoplasm of breast (principal)
CPT/HCPCS: 77063; 77067